=== PATIENT | male | born 1970 | race Caucasian/White ===

== ENCOUNTER 2016-10-08 03:40 | Emergency (ER) | payer SELFPAY ==
[~2016-10-08] VITALS: Ht 182.9 cm; Wt 122.0 kg
[2016-10-08] MEDS ORDERED: KETOROLAC 30MG/ML VIAL IM ONE (06:00)
[2016-10-08] MEDS ORDERED: HYDROCODONE/ACETAMINOPHEN 5/325MG TABLET PO ONE (06:00)
[2016-10-08 06:04] VITALS: BP 158/95
== END 2016-10-08 06:20 | disposition home or self-care (01) ==
LOC: ER 03:40
DX: R51 Headache (principal)
CPT/HCPCS: 82962; 99283; Z7610; J1885